=== PATIENT | male | born 1990 | race Caucasian/White ===

== ENCOUNTER 2017-06-26 16:17 | Inpatient (IN) | payer BC ==
[2017-06-26 16:50] LABS: Hematocrit 40.4 % (42.0-52.0); Mean Platelet Volume 7.1 fL (7.4-10.4); Red Blood Cell (RBC) Count 4.32 mill/uL (4.70-6.10); White Blood Cell (WBC) Count 29.9 thou/uL (4.8-10.8)
[2017-06-26 17:03] LABS: Lactic Acid - Sepsis 0.9 mmol/L (0.5-2.2)
[2017-06-26 17:07] LABS: ALT (SGPT) 12 U/L (8-55); AST (SGOT) 19 U/L (5-34); Alkaline Phosphatase 133 U/L (40-150); Anion Gap 16 mmol/L (10-20); BUN (Urea Nitrogen) 46 mg/dL (8.9-20.6); Bilirubin, Total 0.6 mg/dL (0.2-1.2); Calc. Creatinine Clearance 0 mL/min (70-130); Carbon Dioxide 21 mmol/L (22-29); Chloride 104 mmol/L (98-107); Estimated GFR-MDRD 31; Protein, Total 7.2 g/dL (6.0-8.3)
[2017-06-26 17:09] LABS: Acetaminophen Less than 6.0 mcg/mL (10.0-30.0); CK (CPK) 69 U/L (30-200); Salicylate Less than 8.0 mg/dL (15.0-30.0)
[2017-06-26 17:16] LABS: Band 26 % (5-11); Neutrophil 56 % (42-75); Reactive Lymphocytes 3 % (0-10)
[2017-06-26 17:49] LABS: Amphetamine Not Detected (NotDetected); Methadone Not Detected (NotDetected); Methamphetamine Not Detected (NotDetected)
--- NOTE | 2017-06-26 18:11 | CT ---
NONCONTRAST CT NECK 06/26/17 HISTORY: Neck pain and swelling. Symptoms started last Saturday. Patient has trouble swallowing and has not been eating normal. Patient has fever and chills today. Also nausea. TECHNIQUE: Contiguous axial CT images are obtained through the neck from the base of the brain to the lung apic es without IV contrast. No IV contrast is utilized due to patient's renal insufficiency. FINDINGS: There is a fluid collection with slightly irregular margins seen in the left sternocleidomastoid mus dominga which extends from the level of the clavicle superiorly to near the level of the hyoid bone. Thi s collection measures 4.6 cm craniocaudal x 2.8 cm AP x 2.8 cm transverse. Given clinical history, f indings are worrisome for abscess collection; although, no air is present. Contrast was not administ ered to evaluate for rim enhancement. There is inflammatory stranding seen along the left aspect of the neck as well as anteriorly which e xtends from the level of the hypodense collection within the left sternocleidomastoid muscle to the level of the left clavicle. The left sternocleidomastoid muscle is also enlarged, and there is fluid seen posterior to the left sternocleidomastoid muscle to the level of the thyroid gland. There is fluid density seen posterior to the lower portions of the infrahyoid strap muscles primaril y in the midline and to the left of midline. There is also suggestion of fluid seen extending into t he retrosternal location and inferior to the left sternoclavicular joint. The upper chest was not co mpletely imaged, but there are what appears to be inflammatory changes within the anterior superior mediastinum and mediastinitis could not be excluded based on this exam. The bilateral submandibular and parotid glands and well as thyroid gland demonstrate a grossly gabo l nonenhanced CT appearance. Prevertebral as well as retropharyngeal spaces are normal in appearance. Visualized paranasal sinuses are clear. Lung apices are clear. IMPRESSION: 1. Hypodense collection within the left sternocleidomastoid muscle with enlargement of this mus dominga. This fluid collection is worrisome for abscess collection given patient's clinical history. 2. Inflammatory changes and edema within the subcutaneous soft tissues along the left aspect of the neck adjacent to the left sternocleidomastoid muscle and extending into the upper chest. 3. Fluid seen posterior to the infrahyoid strap muscles primarily at the midline and to the lef t of midline with extension of this low density area into the upper mediastinum, and there is strand ing in the anterior superior mediastinum which is only partially imaged. Extension of infectious or inflammatory process into the mediastinum is suggested. 4. Above findings discussed with Dr. Choi in the Emergency Department on 06/26/17 at 1747 hours . POS: VISH
[2017-06-26] MEDS ORDERED: Vancomycin HCl 1.25 GM in Sodium Chloride 0.9% 250 ML 250 ML IVPB SCH (18:15)
[2017-06-26] MEDS ORDERED: Piperacillin/Tazobactam 4.5 GM VIAL ONE (18:52)
[2017-06-26] MEDS ORDERED: Fentanyl 100 MCG/2 ML VIAL ONE (19:29)
--- NOTE | 2017-06-26 19:35 | RAD ---
GASTROGRAFIN SWALLOW 06/26/17 HISTORY: Infection. Difficulty swallowing. Neck pain and swelling. Symptoms started last Saturday. Patient n ow has fever and chills today. FINDINGS: Gastrografin was administered orally. Esophagus demonstrates a normal appearance and there is no foc al area of narrowing and contrast clears the esophagus and GE junction. However, there is a focal ar ea of slightly persistent contrast after swallowing at the level of the C6 vertebral body which coul d be related to a very tiny Zenker's diverticulum. However, this does eventually clear with repeated swallowing. No obvious mucosal irregularity is seen based on gastrografin evaluation of the esophag us. IMPRESSION: Tiny focus of persistent contrast after initial swallowing at the level of the C6 vertebral body whi ch could represent a very tiny Zenker's diverticulum in this region; although, this is difficult to definitively determine. This area does eventually clear with repeated swallowing. Esophagus otherwis e has a normal appearance, and there is no focal area of narrowing or obvious persistent filling def ect. Contrast traverses the GE junction freely and without holdup. POS: ROBERT
[2017-06-26] MEDS ORDERED: Ondansetron HCl/PF 4 MG/2 ML Vial ONE (19:51)
[2017-06-26] MEDS ORDERED: Ketorolac Tromethamine 30 MG/ML VIAL ONE (19:51)
[2017-06-26] MEDS ORDERED: Succinylcholine Chloride 20 MG/ML 10 ml SYRINGE FS ONE (19:51)
[2017-06-26] MEDS ORDERED: Glycopyrrolate 0.2 MG/ML 5 ML SYRINGE ONE (19:51)
[2017-06-26] MEDS ORDERED: Dexamethasone 20 MG/5 ML VIAL ONE (19:51)
[2017-06-26] MEDS ORDERED: Lidocaine 2% PF 10 ML AMP (For Epidural Use) ONE (19:51)
[2017-06-26] MEDS ORDERED: Propofol 200 MG/20 ML VIAL ONE (19:51)
--- NOTE | 2017-06-26 20:45 | CON ---
DATE OF CONSULTATION: 06/26/2017 EMERGENCY DEPARTMENT NOTE HISTORY OF PRESENT ILLNESS: I was called to see the patient with a neck abscess. He has a history of that. One week ago, he began to have neck discomfort, swelling, and tenderness on palpation. He has a history of migratory joint erythema, which spontaneously resolves. This has never been diagn osed. He thought that this was something along the same lines and would go away spontaneously. He began having fever over the last 48 hours up to 103. He presented to his primary care doctor's jb abnerjee and was referred immediately to [facility]. On arrival in the emergency department, he had a heart rate in the 120 to 130s. He was fluid resusc itated. He had a CT scan of his neck performed, which shows a neck abscess lateral to the sternocle idomastoid on the left extending lateral down underneath his clavicular head on the left. He has green d a barium swallow performed, which shows no contrast extravasation. The patient's heart rate is currently 105. He has a third liter of IV fluid infusing. He has recei blas vancomycin and Zosyn as antibiotic therapy. I have been asked to see him for definitive therapy for this abscess. PAST MEDICAL HISTORY: None. PAST SURGICAL HISTORY: ORIF of his right tibia and fibula. CURRENT MEDICATIONS: At home, Aleve p.r.n. ALLERGIES: None. SOCIAL HISTORY: He does not use tobacco or alcohol. He is accompanied by his girlfriend. REVIEW OF SYSTEMS: Ten point review of systems is performed and is negative except as above includi ng swallowing difficulties, neck penetration from traumatic events, pain or other neck discomfort ot her than around the swelling. PHYSICAL EXAMINATION: GENERAL: This is a well-developed, well-nourished gentleman, resting in the bed. VITAL SIGNS: His temperature has been 101, pulse is 105, and blood pressure is 126/72. NECK: Has obvious erythema and swelling and induration over the left neck. He is reluctant to let me even touch his neck, it is so tender. CHEST: Clear bilaterally. HEART: Rhythm is regular. ABDOMEN: Soft, nontender. EXTREMITIES: No edema. VASCULAR: Palpable radial and femoral pulses bilaterally. LABORATORY DATA: Of note, white blood cell count is 29.9, hemoglobin is 13.1, platelet count is 317 , and BUN is 46 with a creatinine of 2.5. ASSESSMENT AND PLAN: Left neck abscess of uncertain origin. I do not think he has had an esophagea l perforation. We planned to drain this. I told him he will have drain present postoperatively. W e will take cultures and put him in the Intensive Care Unit postoperatively. I expect him to be abl e to be extubated postoperatively also.
[2017-06-26] MEDS ORDERED: SUGAMMADEX SODIUM 500 MG/5 ML VIAL ONE (21:02)
[2017-06-26] MEDS ORDERED: Promethazine HCl 25 MG/ML VIAL SLOW IVP PRN (21:06)
[2017-06-26] MEDS ORDERED: Ondansetron HCl/PF 4 MG/2 ML Vial IVP PRN ×2 (21:06→22:05)
[2017-06-26] MEDS ORDERED: Promethazine HCl 25 MG/ML VIAL IM PRN (21:06)
[2017-06-26] MEDS ORDERED: Milk Of Magnesia 30 ML UDCUP PO PRN (22:05)
[2017-06-26] MEDS ORDERED: Pepto Bismol Chew TAB PO PRN (22:05)
[2017-06-26] MEDS ORDERED: HYDROcodone/Acetaminophen 5/325 mg Tablet PO PRN (22:05)
[2017-06-26] MEDS ORDERED: Acetaminophen 325 MG TAB PO PRN (22:05)
[2017-06-26] MEDS ORDERED: Fentanyl 100 MCG/2 ML VIAL SLOW IVP PRN ×2 (22:05)
[2017-06-26 22:10] VITALS: BMI 26.1
[2017-06-26] MEDS: Vancomycin HCl 1.25 GM in Sodium Chloride 0.9% 250 ML 250 ML IVPB SCH (22:25)
[2017-06-26] MEDS: Sodium Chloride 0.9% 1,000 ML IV SCH (22:25)
--- NOTE | 2017-06-26 23:47 | OP ---
DATE OF OPERATION: 06/26/2017 PREOPERATIVE DIAGNOSIS: Left neck and upper mediastinal abscess. POSTOPERATIVE DIAGNOSIS: Left neck and upper mediastinal abscess. PROCEDURE: Incision and drainage of left neck abscess with resection of the sternoclavicular joint including the clavicular head. SURGEON: Ryan Bains M.D. ANESTHESIA: General endotracheal. ESTIMATED BLOOD LOSS: 100 DRAIN: A 19-Maltese fluted Franklin drain. DESCRIPTION OF PROCEDURE: After consent was obtained, the patient was brought to the operating room and placed in the supine position on the operating room table. Appropriate anesthetic monitor was placed and general endotracheal anesthesia induced. Skin incision was made in a transverse fashion over the abscess and extended medially and inferiorly toward the sternoclavicular joint. Abscess wa s easily entered and cultures were taken. The abscess tracked superiorly along the sternocleidomast oid and inferiorly down toward the sternoclavicular joint. The joint itself was entered and purulen ce drained from the joint. The joint was resected using rongeurs. The clavicular head was resected back to good solid bone. The space that was created was copiously irrigated until clear irrigation returned. A 19-Maltese drain was placed into the abscess. Deep tissues were loosely closed with a 2-0 Vicryl suture. Skin was closed with a 3-0 nylon in a vertical mattress fashion. The patient wa s awakened, extubated, and transferred to the intensive care unit in stable, but critical condition. Needle, sponge, and instrument counts were all reported as correct at the end of the procedure.
[2017-06-27] MEDS: Piperacillin/Tazobactam 3.375 GM in Sodium Chloride 0.9% 100 ML IVPB SCH ×4 (00:15→17:02)
[2017-06-27] MEDS: HYDROcodone/Acetaminophen 5/325 mg Tablet PO PRN ×4 (05:22→21:11)
[2017-06-27] MEDS: Sodium Chloride 0.9% 1,000 ML IV SCH ×2 (06:05→14:07)
[2017-06-27 06:27] LABS: Anion Gap 12 mmol/L (10-20); BUN (Urea Nitrogen) 38 mg/dL (8.9-20.6); Calc. Creatinine Clearance 59 mL/min (70-130); Calcium 8.7 mg/dL (7.8-10.44); Carbon Dioxide 20 mmol/L (22-29); Chloride 108 mmol/L (98-107); Estimated GFR-MDRD 35
[2017-06-27 06:28] LABS: Hematocrit 35.6 % (42.0-52.0); Mean Platelet Volume 7.5 fL (7.4-10.4); Red Blood Cell (RBC) Count 3.74 mill/uL (4.70-6.10)
[2017-06-27 06:53] LABS: Band 26 % (5-11); Metamyelocyte 1 % (0-0); Myelocyte 1 % (0-0); Neutrophil 70 % (42-75)
[2017-06-27] MEDS: Famotidine 20 MG TAB PO SCH (08:05)
[2017-06-27] MEDS ORDERED: FLU VACC QS2017-18 36 mo. & older 0.5 ML SYRINGE IM ONE (09:00)
[2017-06-27] MEDS: Vancomycin HCl 1.25 GM in Sodium Chloride 0.9% 250 ML 250 ML IVPB SCH ×2 (10:11→22:25)
--- NOTE | 2017-06-27 11:41 | PQF ---
CLINICAL DOCUMENTATION IMPROVEMENT CLARIFICATION FORM: ICD-10 Updated PLEASE DO AN ADDENDUM TO THE PROGRESS NOTE WITH ANY DOCUMENTATION UPDATES OR ADDITIONS AND CARRY THROUGH TO DC SUMMARY. THANK YOU. DATE: 06/27/17 ATTN : DR. QUACH Please exercise your independent, professional judgment in responding to the clarification form. Clinical indicators are provided on the bottom of this form for your review Please check appropriate box(s): [ ] Sepsis due to: (Pna, UTI, gangrenous gall bladder, etc.) Due to: [ ] Device (please specify) [ ] Implant [ ] Graft [ ] Infusion [ ] SIRS due to non-infectious process (please specify etiology) [x ] with organ dysfunction [ ] without organ dysfunction [ ] Severe sepsis with acute organ dysfunction of: (Examples: respiratory failure, encephalopathy, acute kidney failure, other) [ ] Localized infection without sepsis [ ] Other diagnosis [ ] Unable to determine In addition, please specify: Present on Admission (POA): [ x ] Yes [ ] No [ ] Unable to determine For continuity of documentation, please document condition throughout progress notes and discharge summary. Thank You. CLINICAL INDICATORS - SIGNS / SYMPTOMS / LABS ER NOTE: "SEPSIS" "PATIENT REPORTS FEVER AND CHILLS TODAY" PULSE IN ER: 111 - 137 WBC 29.9 RISKS: NECK ABSCESS TREATMENT: IV VANCOMYCIN (ER-PRESENT) IV ZOSYN (ER-PRESENT) IV FLUIDS (ER-PRESENT) SURGICAL INTERVENTION CRITICAL CARE MONITORING BLOOD CULTURES CULTURE OF NECK ABSCESS [employer] Viewer(This form is maintained as a part of the permanent medical record) 2014 [employer], [employer]. All Rights Reserved NATHANAEL [email or web address] Office: [phone] [facility] CENTERBalaji
[2017-06-28] MEDS: Piperacillin/Tazobactam 3.375 GM in Sodium Chloride 0.9% 100 ML IVPB SCH ×2 (00:27→06:08)
[2017-06-28] MEDS: Sodium Chloride 0.9% 1,000 ML IV SCH ×4 (00:28→23:54)
[2017-06-28] MEDS: HYDROcodone/Acetaminophen 5/325 mg Tablet PO PRN ×4 (04:38→20:47)
[2017-06-28] MEDS: Famotidine 20 MG TAB PO SCH (10:42)
[2017-06-28 11:04] LABS: Vancomycin, Trough 40.6 ug/mL
[2017-06-28] MEDS ORDERED: Vancomycin HCl 1.25 GM in Sodium Chloride 0.9% 250 ML 250 ML IVPB SCH (11:30)
--- NOTE | 2017-06-28 17:07 | CON ---
DATE OF CONSULTATION: 06/28/2017 REASON FOR CONSULTATION: Bacteremia with sternoclavicular joint infection. HISTORY OF PRESENT ILLNESS: A 26-year-old who has a history of premature episodes of herpes zoster infection as well as recurrent episodes of folliculitis, particularly in the nose area with the most recent outbreak having occurred a few weeks before this admission. The patient, a few days prior t o being admitted, developed progressively worsening pain and swelling of the left SC joint site, was admitted and the imaging studies were consistent with early mediastinitis with sternoclavicular akanksha nt infection and local invasion. Dr. Bains has completed surgical debridement procedure. The opera tive report has been reviewed and skin incision made in a transverse fashion over the abscess extend ing medially towards the SC joint. Cultures were taken and the abscess tracked superiorly along the SC muscle and inferiorly towards the SC joint. The joint itself was entered and purulence drained from the joint. The joint was resected. The clavicular head was resected back to good solid bone a nd space was irrigated. Currently, he is feeling moderate pain at the site. No headaches, visual s ymptoms, sore throat, odynophagia, dysphagia, no cough or sputum production. No dyspnea. No abdomi nal pain, diarrhea, no genitourinary symptoms, no joint symptoms, no neurological symptoms. PAST MEDICAL HISTORY: The patient has reportedly 2 episodes of chickenpox and then has had herpes z micheal in the thoracic dermatome recently. Also, has a history of recurrent folliculitis, particular ly in the nasal passages and had had just a recent case of fairly intense folliculitis, which resolv ed spontaneously. PAST SURGICAL HISTORY: Includes a fracture of the right leg, which required ORIF. ALLERGIES: None. MEDICATIONS: Cefazolin and gentamicin. SOCIAL HISTORY: He works at [employer]. He has a girlfriend and dogs as pets. Never smoker. No drug use. No alcoholic beverage use. PHYSICAL EXAMINATION: VITAL SIGNS: Essentially normal temperature throughout hospital stay. Other vital signs are normal . SKIN: Exam shows the incision for the debridement with sutures and he has a drain in the underside of the left parasternal border skin. No lymphadenopathy. HEENT: Exam noncontributory. LUNGS: Clear. HEART: S1, S2, regular rate. ABDOMEN: Soft, not distended. : No genital abnormalities. EXTREMITIES: No joint inflammatory activity outside of the area of involvement, pulses 1+ in dorsal is pedis. Moves all extremities equally. LABORATORY DATA: White cell count is down to 26,000, hemoglobin to 11, platelets 248. His creatini ne is at 2.52. We do not have any other baseline except for the admitting creatinine, which was 1.7 . Microbiology with 2 sets of blood cultures with Staphylococcus aureus, which is methicillin sensi tive. ASSESSMENT: 1. History of recurring varicella zoster virus infections in the past. 2. Methicillin-resistant Staphylococcus aureus bacteremia with sternoclavicular joint infection and local extension, status post surgical debridement. DISCUSSION: The most likely scenario is that the patient developed bacteremia and then seeding of t he left SC joint from the area of folliculitis in the nasal area. It is unusual to manifest in othe rwise healthy young persons, which might raise the possibility of not yet detected immunodeficiency, particularly in view of the recurring episodes of a varicella zoster virus infection. We will chec k his HIV serology and hepatitis C and RPR as well and switch him to cefazolin 2 grams q.8 hours, PI CC line placement, and plan long-term outpatient antimicrobial therapy through my office.
--- NOTE | 2017-06-28 18:03 | SPC ---
LEFT UPPER EXTREMITY PICC PLACEMENT 06/28/17 INDICATION: Need for senior care IV antibiotics. TECHNIQUE: Informed consent was obtained. Preprocedure ultrasound demonstrated a patent left basilic vein. Site overlying the left basilic vein was prepped and draped in the usual sterile fashion. Buffered 1% li docaine was administered overlying the subcutaneous tissues. Under ultrasound guidance, a micropunct ure access kit was utilized to gain access to the left basilic vein. The guide wire was advanced to the level of the IVC. 5 Hebrew catheter sheath was then placed. A single lumen PICC line trimmed to 45 cm was guided over the wire and through the sheath. The catheter is seen at the cavoatrial juncti on. The catheter flushed and aspirated appropriately. The catheter was cut to 45 cm. Total fluorosco pic time was 0.8 minutes. Total exposure of 5859 mGy*cm2. IMPRESSION: Successful ultrasound fluoroscopic guided left upper extremity PICC line placement. POS: TRISTA
[2017-06-28] MEDS ORDERED: Gentamicin Sulfate 80 MG in Premix Bag 1 BAG IVPB SCH (21:00)
[2017-06-29] MEDS ORDERED: Furosemide 40 MG/4 ML VIAL SLOW IVP SCH ×2 (03:15→14:00)
[2017-06-29] MEDS: Vancomycin HCl 1.25 GM in Sodium Chloride 0.9% 250 ML 250 ML IVPB SCH (04:20)
[2017-06-29 05:53] LABS: Anion Gap 16 mmol/L (10-20); BUN (Urea Nitrogen) 54 mg/dL (8.9-20.6); Calc. Creatinine Clearance 53 mL/min (70-130); Carbon Dioxide 19 mmol/L (22-29); Chloride 107 mmol/L (98-107); Estimated GFR-MDRD 31
[2017-06-29 06:29] LABS: Band 18 % (5-11); Hematocrit 37.8 % (42.0-52.0); Mean Platelet Volume 7.2 fL (7.4-10.4); Neutrophil 76 % (42-75); Red Blood Cell (RBC) Count 4.01 mill/uL (4.70-6.10)
[2017-06-29] MEDS: Sodium Chloride 0.9% 1,000 ML IV SCH ×2 (06:35→15:21)
--- NOTE | 2017-06-29 08:26 | RAD ---
SINGLE VIEW OF CHEST: Date: 06/29/17 COMPARISON: None. HISTORY: Decreased oxygen saturation. FINDINGS: Single view of the chest shows normal sized cardiomediastinal silhouette. A PICC line is seen with i ts tip in the superior vena cava. There is obscurity of both costophrenic angles which may represent small pleural effusions versus atelectasis. IMPRESSION: Bilateral pleural effusions versus atelectasis. POS: ROBERT
[2017-06-29] MEDS: Famotidine 20 MG TAB PO SCH (09:30)
[2017-06-29] MEDS: HYDROcodone/Acetaminophen 5/325 mg Tablet PO PRN ×2 (09:34→20:51)
[2017-06-29] MEDS ORDERED: Heparin 1,000 UNITS/ML VIAL ONE (15:35)
[2017-06-30] MEDS: Sodium Chloride 0.9% 1,000 ML IV SCH ×2 (02:28→07:31)
[2017-06-30 05:47] LABS: Anion Gap 13 mmol/L (10-20); BUN (Urea Nitrogen) 47 mg/dL (8.9-20.6); Calc. Creatinine Clearance 65 mL/min (70-130); Calcium 8.9 mg/dL (7.8-10.44); Carbon Dioxide 24 mmol/L (22-29); Chloride 101 mmol/L (98-107); Estimated GFR-MDRD 39
[2017-06-30 06:08] LABS: Band 11 % (5-11); Hematocrit 34.9 % (42.0-52.0); Mean Platelet Volume 7.2 fL (7.4-10.4); Metamyelocyte 3 % (0-0); Neutrophil 70 % (42-75); Red Blood Cell (RBC) Count 3.75 mill/uL (4.70-6.10); White Blood Cell (WBC) Count 22.7 thou/uL (4.8-10.8)
[2017-06-30] MEDS ORDERED: Furosemide 40 MG/4 ML VIAL SLOW IVP SCH (09:15)
[2017-06-30] MEDS: Famotidine 20 MG TAB PO SCH (09:56)
--- NOTE | 2017-06-30 12:11 | ULT ---
LEFT UPPER EXTREMITY VENOUS ULTRASOUND: Date: 06/30/17 COMPARISON: None. HISTORY: Recent clavicle surgery with PICC line. Swelling/edema in the left arm. TECHNIQUE: Multiplanar Ware scale and color Doppler images were obtained in a left upper extremity venous ultra sound. Spectral analysis of the Doppler waveforms performed. FINDINGS: The left internal jugular vein demonstrates normal compression and flow without evidence of thrombus . The left subclavian vein demonstrates normal flow and augmentation without evidence of thrombus. T he left axillary and brachial veins show normal compression, flow, and augmentation without evidence of thrombus. There is a PICC line in the left basilic vein. Flow is seen surrounding the PICC line without eviden ce of thrombus of the basilic vein. The cephalic vein is small and patent. The venous structures dis abhay to the left elbow are unremarkable. IMPRESSION: 1. Left upper extremity PICC line seen in basilic vein. 2. No evidence of left upper extremity thrombus. POS: [facility]
[2017-06-30] MEDS: HYDROcodone/Acetaminophen 5/325 mg Tablet PO PRN (23:37)
[2017-07-01 05:49] LABS: Anion Gap 15 mmol/L (10-20); BUN (Urea Nitrogen) 47 mg/dL (8.9-20.6); Calc. Creatinine Clearance 66 mL/min (70-130); Calcium 9.1 mg/dL (7.8-10.44); Carbon Dioxide 29 mmol/L (22-29); Chloride 98 mmol/L (98-107); Estimated GFR-MDRD 40
[2017-07-01 05:50] LABS: Band 12 % (5-11); Hematocrit 36.4 % (42.0-52.0); Mean Platelet Volume 7.4 fL (7.4-10.4); Myelocyte 2 % (0-0); Neutrophil 64 % (42-75); Reactive Lymphocytes 1 % (0-10); Red Blood Cell (RBC) Count 3.94 mill/uL (4.70-6.10)
[2017-07-01] MEDS: Famotidine 20 MG TAB PO SCH (08:41)
[2017-07-01] MEDS ORDERED: cefTRIAXone\\ROCEPHIN 1 GM in Sodium Chloride 0.9% 100 ML IVPB SCH (14:45)
[2017-07-01] MEDS: HYDROcodone/Acetaminophen 5/325 mg Tablet PO PRN (15:28)
[2017-07-01 16:13] VITALS: BP 128/67; TEMP 98.2
--- NOTE | 2017-07-02 00:54 | DIS ---
DATE OF ADMISSION: 06/26/2017 DATE OF DISCHARGE: 07/01/2017 DIAGNOSES: Left sternoclavicular joint infection with abscess extending up into the left neck. PROCEDURES: I\T\D of left neck and sternoclavicular joint. DESCRIPTION OF HOSPITAL STAY: Mr. Elizondo came to the emergency department with tachycardic, hypo tensive, febrile with left neck that was obviously swollen. A CT scan was obtained by the emergency department showed an abscess involving the upper mediastinum, sternoclavicular joint and extending up into his left neck. He was taken to the operating room and underwent debridement of his clavicle , sternoclavicular joint and neck. Drains were left in place. Cultures returned as methicillin-sen sitive Staph. Dr. Murdock has seen him and has him set up for outpatient antibiotic therapy. He will follow up with Dr. Murdock and also follow up with myself in a week for suture removal.
== END 2017-07-01 16:55 | disposition home or self-care (01) | DRG 853 ==
LOC: ERS 16:17 → SDC/OP 19:17 → CCU 21:48 → SURG A 06-27 15:48
PROVIDERS: ADMIT Thoracic Surgery (Cardiothoracic Vascular Surgery); ATTEND Thoracic Surgery (Cardiothoracic Vascular Surgery)
PROC: 0RBF0ZZ Excision of Left Sternoclavicular Joint, Open Approach (ICD-10-PCS; principal; 2017-06-26)
PROC: 0PBB0ZZ Excision of Left Clavicle, Open Approach (ICD-10-PCS; 2017-06-26)
PROC: 0J9500Z Drainage of Left Neck Subcutaneous Tissue and Fascia with Drainage Device, Open Approach (ICD-10-PCS; 2017-06-26)
PROC: 02HV33Z Insertion of Infusion Device into Superior Vena Cava, Percutaneous Approach (ICD-10-PCS; 2017-06-28)
PROC: B548ZZA Ultrasonography of Superior Vena Cava, Guidance (ICD-10-PCS; 2017-06-28)
DX: A41.01 Sepsis due to Methicillin susceptible Staphylococcus aureus (principal); J85.3 Abscess of mediastinum; I95.9 Hypotension, unspecified; M00.012 Staphylococcal arthritis, left shoulder; L02.11 Cutaneous abscess of neck; Z86.19 Personal history of other infectious and parasitic diseases; Z79.2 Long term (current) use of antibiotics
CPT/HCPCS: 36415; 36569; 70490; 71010; 74220; 80048; 80053; 80202; 80306; 80307; 82550; 83605; 84439; 84443; 85025; 85060; 87040; 87070; 87077; 87102; 87149; 87186; 87205; 87206; 93005; 96361; 96365; 96375; A4216; C1751; J0696; J1100; J1580; J1644; J1885; J1940; J2001; J2270; J2405; J2543; J2704; J3010; J3370; J7050

== ENCOUNTER 2019-08-18 13:18 | Outpatient (CLI) | payer OTHER ==
--- NOTE | 2019-08-18 13:51 | ULT ---
Bilateral renal ultrasound CLINICAL INDICATION: Chronic kidney disease. COMPARISON: None FINDINGS: Right kidney: Mild increased echogenicity with borderline normal renal cortical thickness. No hydrone phrosis, renal mass, or renal calculus is seen. The right kidney measures 9 cm x 4.7 cm. Left kidney: Mild increased echogenicity with borderline normal renal cortical thickness. No hydronep hrosis, renal mass, renal calculus is seen. The left kidney measures 9.4 cm x 4.6 cm. Urinary bladder: Not visualized or evaluated. The patient voided just prior to this exam. IMPRESSION: Mild increased echogenic appearance of each kidney which can be seen with chronic medical renal disea se. No hydronephrosis or renal mass is seen.
== END 2019-08-18 13:19 | disposition home or self-care (01) ==
LOC: BICULT 13:18
PROVIDERS: ATTEND Internal Medicine Nephrology
DX: N18.3 Chronic kidney disease, stage 3 (moderate) (principal); R93.421 Abnormal radiologic findings on diagnostic imaging of right kidney; R93.422 Abnormal radiologic findings on diagnostic imaging of left kidney
CPT/HCPCS: 76770